=== PATIENT | female | born 1975 | race Caucasian/White ===

== ENCOUNTER 2018-01-01 12:17 | Emergency (ER) | payer MEDICARE, MEDICAID ==
[~2018-01-01] VITALS: Ht 134.6 cm; Wt 64.4 kg
[~2018-01-01 12:17] MED LIST: ACIDOPHILUS LA1 EACH; ALLERGY10 MG PO; ALPRAZOLAM 0.50.5 M1 PO; AMBIEN 10 MG TA10 MG PO; ASPIRIN325 PO; AUGMENTIN 875-1 EACH PO; AZITHROMYCIN 2250 MG PO; BENTYL10 MG; BUSPIRONE HCL10 MG PO; CARAFATE 1 GM TA1 G1 PO; CEFUROXIME500 MG PO; CELEBREX 200 M200 M1 PO; CIPRO500 MG PO; CIPROFLOXACIN500 M1 PO; CITRATE OF MAG296 ML PO; CLINORIL200 MG; COUMADIN; COUMADIN 4 MG TA4 M1 PO; COUMADIN 5 MG TA5 M1 PO; CRANBERRY250 MG PO; DETROL2 M1 PO; DIFLUCAN PO; DIFLUCAN100 MG PO; DULCOLAX5 MG PO; FISH OIL 1,001000 M2 PO; FISHOIL PO; FLONASE 0.05%50 MCG NASAL; K-DUR10 ME1 PO; K-DUR10 MEQ PO; KEFLEX500 MG PO; LASIX 20 MG TAB20 MG PO; LEXAPRO 10 MG T10 M1 PO; LEXAPRO20 MG PO; LINZESS290 MCG PO; LIORESAL 10 MG10 MG PO; MELATONIN3 M1 PO; MUCINEX600 MG PO; MULTIVITAMINS PO; NEXIUM40 MG PO; ONDANSETRON HCL4 M2 PO; OYSTER SHELL C1 EA12 PO; OYSTER SHELL C1 EA15 PO; PHENERGAN 25 MG25 M1 PO; PHENERGAN 25 MG25 MG PO; PROMETHAZINE HC25 M1; SIMCOR PO; TRAZODONE HCL50 MG PO; TYLENOL325 MG PO; UNICOMPLEX M TA1 TA1 PO; VISTARIL 25 MG25 M1 PO; VITAMIN B-12500 MCG PO; ZPAK PO
[2018-01-01 12:54] LABS: URINE BILIRUBIN NEGATIVE (Negative); URINE BLOOD 1+ (Negative); URINE CLARITY TURBID; URINE COLOR YELLOW; URINE GLUCOSE-RANDOM NEGATIVE (Negative); URINE KETONES NEGATIVE (Negative); URINE PROTEIN 2+ (Negative); URINE SPECIFIC GRAVITY >= 1.030 (1.005-1.030); URINE UROBILINOGEN 0.2 E.U./dl (0.2-1.0)
[2018-01-01 13:05] LABS: URINE LEUKOCYTES-REFLEX 2+ (Negative); URINE NITRITE-REFLEX POSITIVE (Negative)
[2018-01-01 13:06] LABS: BACTERIA-REFLEX >30 Many /HPF (None Seen); URINE RBC None Seen /HPF (0-2); URINE WBC-REFLEX >25 Many /HPF (0-5)
[2018-01-01 13:43] LABS: HEMATOCRIT 49.3 % (37.0-47.0); HEMOGLOBIN 16.6 gm/dL (12.0-15.0); MCH 30.3 pg (26.0-34.0); MCHC 33.7 g/dL (28.0-37.0); NUCLEATED RBCS 0 /100WBC; PLATELET COUNT* 270 thou/uL (150-400); RBC 5.48 mil/uL (4.20-5.00); RDW-CV 12.8 % (10.5-14.5); WBC 9.4 thou/uL (4.0-11.0)
[2018-01-01 13:57] LABS: CREATININE 0.5 mg/dL (0.6-1.3)
[2018-01-01 14:02] LABS: ALBUMIN 4.4 g/dL (3.4-5.0); TOTAL BILIRUBIN 0.5 mg/dL (<0.1-1.0); TOTAL PROTEIN 8.8 g/dL (6.4-8.2)
[2018-01-01 14:10] LABS: ABSOLUTE LYMPHOCYTES 0.8 thou/uL (0.8-5.3); ABSOLUTE MONOCYTES 0.1 thou/uL (0.0-1.2); ABSOLUTE NEUTROPHILS 8.6 thou/uL (1.6-8.1); ATYPICAL LYMPHS 2 %
[2018-01-01 14:12] LABS: PLATELET ESTIMATE ADEQUATE
[2018-01-01 15:38] VITALS: BP 119/83
[2018-01-18] MEDS ORDERED: VITAMINC500 PO (13:38)
[2018-07-24] MEDS ORDERED: REMERON15 M2 PO (09:48)
[2018-07-24] MEDS ORDERED: FISH OIL 1,001000 M2 PO (09:48)
== END 2018-01-01 15:42 | disposition home or self-care (01) ==
LOC: M.ERS 12:17
PROVIDERS: Nurse Practitioner Family
DX: K52.9 Noninfective gastroenteritis and colitis, unspecified (principal); F32.9 Major depressive disorder, single episode, unspecified; Z88.1 Allergy status to other antibiotic agents; Z91.040 Latex allergy status; Z88.8 Allergy status to other drugs, medicaments and biological substances; Z91.018 Allergy to other foods

== ENCOUNTER → 2018-01-18 | Outpatient (CLI) | payer MEDICARE, MEDICAID ==
[~2018-01-18] VITALS: Ht 134.6 cm; Wt 64.4 kg
[~2018-01-18] MED LIST changes: +REMERON15 M2 PO; +VITAMINC500 PO
[2018-01-18 13:34] VITALS: BP 139/80
== END ==
LOC: M.CT 12:36 → M.ERS 12:36 → M.CT 14:00
DX: J84.10 Pulmonary fibrosis, unspecified (principal); J98.11 Atelectasis; M41.84 Other forms of scoliosis, thoracic region

== ENCOUNTER → 2018-07-16 | Outpatient (CLI) | payer MEDICARE, MEDICAID | LOC: M.CT 12:48 | DX: Z01.89 Encounter for other specified special examinations (principal); K22.8 Other specified diseases of esophagus ==

== ENCOUNTER → 2018-07-30 | Outpatient (CLI) | payer MEDICARE, MEDICAID | LOC: M.WC 09:54 | DX: K28.3 Acute gastrojejunal ulcer without hemorrhage or perforation (principal); G80.9 Cerebral palsy, unspecified; G47.30 Sleep apnea, unspecified; E78.5 Hyperlipidemia, unspecified; K21.9 Gastro-esophageal reflux disease without esophagitis; F32.9 Major depressive disorder, single episode, unspecified; Z43.3 Encounter for attention to colostomy; Z87.891 Personal history of nicotine dependence; Z79.82 Long term (current) use of aspirin ==

== ENCOUNTER → 2018-08-23 | Day surgery (SDC) | payer MEDICARE, MEDICAID ==
--- NOTE | ~2018-08-23 | PROC ---
[address] [address] PROCEDURE REPORT Name: OSIEL SUN Room: [facility].#: [id number] Admission: 08/23/18 Attend Phys: Kylah Banuelos MD Discharge: Date of : 75 Report #: [id number] THIS REPORT FOR: //name// For GI report, please see the Provation report in Perceptive 7 content. By: 0706Medical Records Staff LESTER /JAGDISH
[2018-08-23 10:03] LABS: HEMOGLOBIN 14.3 gm/dL (12.0-15.0); MCH 28.9 pg (26.0-34.0); MCHC 33.2 g/dL (28.0-37.0); MCV 87.1 fL (80.0-100.0); RBC 4.94 mil/uL (4.20-5.00); RDW-CV 12.5 % (10.5-14.5); WBC 7.7 thou/uL (4.0-11.0)
[2018-08-23 10:29] LABS: CALCIUM 9.6 mg/dL (8.5-10.1); CREATININE 0.5 mg/dL (0.6-1.3); POTASSIUM 4.1 mmol/L (3.5-5.1)
[2018-08-23 10:34] LABS: ALBUMIN 4.2 g/dL (3.4-5.0); TOTAL BILIRUBIN 0.2 mg/dL (<0.1-1.0); TOTAL PROTEIN 7.9 g/dL (6.4-8.2)
--- NOTE | 2018-08-23 14:11 | EKG ---
[place] [address] ELECTROCARDIOGRAM REPORT Name: MARTÍN SUNIA Ale Room: [facility]#: [id number] Admission: 08/23/18 Attend Phys: Kylah Banuelos MD Discharge: Date of : 75 Report #: [id number] THIS REPORT FOR: //name// [facility] Test Date: 2018-08-23 Test Time: 09:50:42 Pat Name: OSIEL SUN Department: Room: Gender: F Manager [employer]: : 1975 Requested By: Kylah Banuelos Order Number: [id number] Reading MD: Pierre Gupta Measurements Intervals [place] Rate: 89 P: 38 MT: 121 QRS: 55 QRSD: 79 T: -1 QT: 345 QTc: 420 Interpretive Statements Sinus rhythm Borderline T abnormalities, inferior leads Compared to ECG 10/14/2017 14:34:35 No significant changes Electronically Signed On 08-23-2018 14:10:59 CDT by Pierre Gupta [email or web address] <ELECTRONICALLY SIGNED> By: Pierre Gupta MD, [facility] 08/23/18 1410 0950 9 Pierre Gupta MD, FACC /EPI
== END | disposition home or self-care (01) ==
LOC: M.SUR 08-09 07:15
PROVIDERS: Internal Medicine Gastroenterology
DX: R13.19 Other dysphagia (principal); K44.9 Diaphragmatic hernia without obstruction or gangrene; E78.5 Hyperlipidemia, unspecified; F32.9 Major depressive disorder, single episode, unspecified; Z79.899 Other long term (current) drug therapy; Z86.718 Personal history of other venous thrombosis and embolism; Z79.01 Long term (current) use of anticoagulants; Z91.040 Latex allergy status; Z88.8 Allergy status to other drugs, medicaments and biological substances; Z98.890 Other specified postprocedural states; Z91.041 Radiographic dye allergy status; Z79.82 Long term (current) use of aspirin

== ENCOUNTER 2019-01-08 11:36 | Emergency (ER) | payer MEDICARE, MEDICAID ==
[~2019-01-08] VITALS: Ht 134.6 cm; Wt 54.4 kg
[2019-01-08 12:31] LABS: ABSOLUTE LYMPHOCYTES 1.3 thou/uL (0.8-5.3); ABSOLUTE MONOCYTES 0.5 thou/uL (0.0-1.2); ABSOLUTE NEUTROPHILS 4.8 thou/uL (1.6-8.1); BASOPHILS 0.5 %; EOSINOPHILS 0.6 %; HEMOGLOBIN 13.5 gm/dL (12.0-15.0); LYMPHOCYTES 19.5 %; MCH 28.9 pg (26.0-34.0); MCHC 33.7 g/dL (28.0-37.0); MCV 85.8 fL (80.0-100.0); MONOCYTES 7.5 %; MPV 7.9 fl. (7.2-11.1); NUCLEATED RBCS 0 /100WBC; PLATELET COUNT* 268 thou/uL (150-400); POLYS 71.9 %; RBC 4.66 mil/uL (4.20-5.00); RDW-CV 12.8 % (10.5-14.5); WBC 6.7 thou/uL (4.0-11.0)
[2019-01-08 12:44] LABS: APTT 27.4 Seconds (25.0-31.3)
[2019-01-08 12:56] LABS: ANION GAP 10 mmol/L (7-16); BUN 9 mg/dL (7-18); CALCIUM 9.1 mg/dL (8.5-10.1); CHLORIDE 103 mmol/L (98-107); CO2 27 mmol/L (21-32); CREATININE 0.5 mg/dL (0.6-1.3); GLUCOSE 105 mg/dL (70-99); POTASSIUM 3.4 mmol/L (3.5-5.1); SODIUM 140 mmol/L (136-145); TROPONIN-I LEVEL <0.06 ng/mL (<0.06)
[2019-01-08 13:03] LABS: ALBUMIN 3.8 g/dL (3.4-5.0); ALKALINE PHOSPHATASE 93 U/L (46-116); NT-PRO BRAIN NAT PEPTIDE 48 pg/mL (<300); SGOT 20 U/L (15-37); SGPT 40 U/L (30-65); TOTAL BILIRUBIN 0.2 mg/dL (<0.1-1.0); TOTAL PROTEIN 7.8 g/dL (6.4-8.2)
[2019-01-08] MEDS ORDERED: VENTOLIN HFA 1818 GM INH (13:22)
[2019-01-08] MEDS ORDERED: ULTRAM 50MG TAB50 MG PO (13:22)
[2019-01-08 13:40] VITALS: BP 123/76
--- NOTE | 2019-01-08 15:15 | EKG ---
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 : 1975 Requested By: Leonel Parkinson Order Number: [id number] MD: Pierre Gupta Measurements Intervals [place] Rate: 111 P: 90 NC: 140 QRS: 62 QRSD: 73 T: -64 QT: 364 QTc: 495 Interpretive Statements Sinus tachycardia Probable left atrial enlargement Nonspecific T abnormalities, diffuse leads Borderline prolonged QT interval Compared to ECG 08/23/2018 09:50:42 Sinus rhythm no longer present T-wave abnormality still present Electronically Signed On 01-08-2019 15:15:06 CDT by Pierre Gupta [email or web address] <ELECTRONICALLY SIGNED> By: Pierre Gupta MD, [facility] 01/08/19 1515 1147 1147 Pierre Gupta MD, [facility] /EPI
== END 2019-01-08 13:41 | disposition home or self-care (01) ==
LOC: M.ERS 11:36
PROVIDERS: Family Medicine
DX: R07.89 Other chest pain (principal); R06.00 Dyspnea, unspecified; G47.30 Sleep apnea, unspecified; F32.9 Major depressive disorder, single episode, unspecified; M41.9 Scoliosis, unspecified; Z86.718 Personal history of other venous thrombosis and embolism; Z88.1 Allergy status to other antibiotic agents; Z91.040 Latex allergy status; Z88.8 Allergy status to other drugs, medicaments and biological substances; Z91.018 Allergy to other foods

== ENCOUNTER → 2019-04-11 | Outpatient (CLI) | payer MEDICARE, MEDICAID ==
[~2019-04-11] MED LIST changes: +ULTRAM 50MG TAB50 MG PO; +VENTOLIN HFA 1818 GM INH
== END ==
LOC: M.ULTRA 04-01 14:30
DX: M79.89 Other specified soft tissue disorders (principal); R60.0 Localized edema

== ENCOUNTER → 2019-07-15 | Outpatient (CLI) | payer MEDICARE, MEDICAID | LOC: M.RAD 07-11 15:10 | DX: Z12.31 Encounter for screening mammogram for malignant neoplasm of breast (principal) ==